=== PATIENT | female | born 1945 | race Caucasian/White ===

== ENCOUNTER 2017-12-22 10:01 | Outpatient (CLI) | payer MEDICARE | END 2017-12-22 10:02 | disposition home or self-care (01) | LOC: BICMAMMO 10:01 | PROVIDERS: ATTEND Obstetrics & Gynecology | DX: Z12.31 Encounter for screening mammogram for malignant neoplasm of breast (principal); Z80.3 Family history of malignant neoplasm of breast | CPT/HCPCS: 77063; 77067 ==

== ENCOUNTER 2018-12-23 09:20 | Outpatient (CLI) | payer MEDICARE ==
--- NOTE | 2018-12-23 10:50 | MMO ---
Bilateral MAMMO Bilat Screen [facility]. CLINICAL HISTORY: Patient is 73 years old and is seen for screening. The patient has the following family history of breast cancer: paternal aunt, in her 70's. The patient has a history of other cancer. The patient has a history of bilateral Cyst Aspiration in [id number] - benign - Multiple aspirations.. VIEWS: The views performed were: bilateral craniocaudal with tomosynthesis and bilateral mediolateral oblique with tomosynthesis. FILMS COMPARED: The present examination has been compared to prior imaging studies performed at [facility] on 04/15/2015, 10/18/2015, 04/22/2016, 11/17/2016 and 12/22/2017. MAMMOGRAM FINDINGS: There are scattered fibroglandular densities. Benign calcifications are noted bilaterally. Right breast scar. There are no suspicious masses, suspicious calcifications, or new areas of architectural distortion. IMPRESSION: THERE IS NO MAMMOGRAPHIC EVIDENCE OF MALIGNANCY. A ROUTINE FOLLOW-UP MAMMOGRAM IN 1 YEAR IS RECOMMENDED. THE RESULTS OF THIS EXAM WERE SENT TO THE PATIENT. ACR BI-RADS Category 2 - Benign finding MAMMOGRAPHY NOTE: 1. A negative mammogram report should not delay a biopsy if a dominant of clinically suspicious mass is present. 2. Approximately 10% to 15% of breast cancers are not detected by mammography. 3. Adenosis and dense breasts may obscure an underlying neoplasm.
== END 2018-12-23 09:21 | disposition home or self-care (01) ==
LOC: BICMAMMO 09:20
PROVIDERS: ATTEND Obstetrics & Gynecology
DX: Z12.31 Encounter for screening mammogram for malignant neoplasm of breast (principal); Z80.3 Family history of malignant neoplasm of breast; Z85.89 Personal history of malignant neoplasm of other organs and systems
CPT/HCPCS: 77063; 77067

== ENCOUNTER 2019-02-13 09:06 | Outpatient (CLI) | payer MEDICARE ==
--- NOTE | 2019-02-13 09:52 | RAD ---
EXAM: Bone survey HISTORY: Multiple myeloma COMPARISON: 12/24/2016 TECHNIQUE: Images of the skull, chest, spine, pelvis, bilateral upper extremities, and bilateral lowe r extremities were performed. FINDINGS: No fracture or dislocation are seen. No suspicious osseous lesions are identified. Degenerative vasquez es are seen in the spine. There is grade 1 anterolisthesis of L5 on S1. IMPRESSION: No suspicious osseous lesions identified
== END 2019-02-13 09:07 | disposition home or self-care (01) ==
LOC: BICRAD 09:06
PROVIDERS: ATTEND Internal Medicine Hematology & Oncology
DX: C90.00 Multiple myeloma not having achieved remission (principal)
CPT/HCPCS: 77075

== ENCOUNTER 2020-02-26 10:21 | Outpatient (CLI) | payer MEDICARE ==
--- NOTE | 2020-02-26 11:19 | RAD ---
Exam: Adult bone survey HISTORY: Staging for multiple myeloma COMPARISON: 04/05/2019 FINDINGS: Lateral views of the calvarium. AP and lateral cervical spine, thoracic spine, lumbar spine , AP view of the pelvis, AP view of the left and right femur, left and right tibia fibula, left and right humerus, left and right ulna are all submitted for interpretation Stable degenerative changes of the cervical spine. There are no lytic or blastic lesions in the nyla rium, cervical/thoracic or lumbar spine, either upper extremity or lower extremity. No lytic lesion of the visualized bony pelvis. Stable grade 1 anterolisthesis of L4 upon L5 and L5 upon S1. IMPRESSION: No lytic or blastic lesions in the visualized osseous.
== END 2020-02-26 10:22 | disposition home or self-care (01) ==
LOC: BICRAD 10:21
PROVIDERS: ATTEND Internal Medicine Hematology & Oncology
DX: C90.00 Multiple myeloma not having achieved remission (principal)
CPT/HCPCS: 77075

== ENCOUNTER 2020-05-01 12:58 | Outpatient (CLI) | payer MEDICARE, OTHER ==
--- NOTE | 2020-05-02 09:10 | MMO ---
Bilateral MAMMO Bilat Screen [facility]. CLINICAL HISTORY: Patient is 74 years old and is seen for screening. The patient has the following family history of breast cancer: paternal aunt, in her 70's. The patient has a history of other cancer. The patient has a history of bilateral Cyst Aspiration in [id number] - benign - Multiple aspirations.. VIEWS: The views performed were: bilateral craniocaudal with tomosynthesis and bilateral mediolateral oblique with tomosynthesis. FILMS COMPARED: The present examination has been compared to prior imaging studies performed at [facility] on 04/22/2016, 11/17/2016, 12/22/2017 and 12/23/2018. This study has been interpreted with the assistance of computer-aided detection. MAMMOGRAM FINDINGS: There are scattered fibroglandular densities. Benign calcifications are noted bilaterally. There are no suspicious masses, suspicious calcifications, or new areas of architectural distortion. IMPRESSION: THERE IS NO MAMMOGRAPHIC EVIDENCE OF MALIGNANCY. A ROUTINE FOLLOW-UP MAMMOGRAM IN 1 YEAR IS RECOMMENDED. THE RESULTS OF THIS EXAM WERE SENT TO THE PATIENT. ACR BI-RADS Category 2 - Benign finding MAMMOGRAPHY NOTE: 1. A negative mammogram report should not delay a biopsy if a dominant of clinically suspicious mass is present. 2. Approximately 10% to 15% of breast cancers are not detected by mammography. 3. Adenosis and dense breasts may obscure an underlying neoplasm. Reported by: WASHINGTON ESCOBAR MD Electonically Signed: [id number]
== END 2020-05-01 12:59 | disposition home or self-care (01) ==
LOC: BICMAMMO 12:58
PROVIDERS: ATTEND Internal Medicine
DX: Z12.31 Encounter for screening mammogram for malignant neoplasm of breast (principal); Z80.3 Family history of malignant neoplasm of breast; Z85.89 Personal history of malignant neoplasm of other organs and systems
CPT/HCPCS: 77063; 77067

== ENCOUNTER 2021-06-20 14:12 | Outpatient (CLI) | payer MEDICARE, OTHER | END 2021-06-20 14:13 | disposition home or self-care (01) | LOC: BICMAMMO 14:12 | PROVIDERS: ATTEND Internal Medicine Hematology & Oncology | DX: N64.4 Mastodynia (principal); C90.00 Multiple myeloma not having achieved remission | CPT/HCPCS: 76642; 77066; G0279 ==

== ENCOUNTER 2022-06-22 07:59 | Outpatient (CLI) | payer MEDICARE, OTHER | END 2022-06-22 08:00 | disposition home or self-care (01) | LOC: BICMAMMO 07:59 | PROVIDERS: ATTEND Internal Medicine Hematology & Oncology | DX: Z12.31 Encounter for screening mammogram for malignant neoplasm of breast (principal); C90.00 Multiple myeloma not having achieved remission; M85.851 Other specified disorders of bone density and structure, right thigh; M85.852 Other specified disorders of bone density and structure, left thigh; Z80.3 Family history of malignant neoplasm of breast; Z85.89 Personal history of malignant neoplasm of other organs and systems | CPT/HCPCS: 77063; 77067; 77080 ==